=== PATIENT | male | born 2000 | race American Indian/Alaskan Native ===

== ENCOUNTER 2018-05-06 16:30 | Emergency (ER) | payer OTHER ==
[2018-05-06 16:41] VITALS: BP 111/79
[2018-05-06] MEDS ORDERED: NACL 0.9% 1000 ML 1,000 ML IV ONE (17:00)
--- NOTE | 2018-05-06 17:00 | Emergency Department Report ---
Blank Doc - Documentation Documentation: This is a 17 y.o. male that presents with nausea and vomiting after alcohol in toxication during college homecoming. This initial assessment diagnostic orders/clinical plan/treatment(s) is/are subject to change based on patient's health status, clinical progression and re-assessment by fellow clinical providers in the ED. Further treatment and workup at subsequent clinical providers discretion. Patient/guardians urged not to elope from ED s their condition may be serious if not clinically assessed and managed. Initial orders include: 1- Labs 2- IV 3- fluids Fast track for further evaluation.
[2018-05-06 17:21] LABS: Basophils % (Auto) 0.7 % (0.0-1.8); Eosinophils # (Auto) 0.1 K/mm3 (0.0-0.4); Eosinophils % (Auto) 3.2 % (0.0-4.3); Hematocrit 42.7 % (35.5-45.6); Lymphocytes # (Auto) 1.8 K/mm3 (1.2-5.4); Lymphocytes % (Auto) 39.2 % (13.4-35.0); Mean Corpuscular HGB Conc 35 % (32-34); Mean Corpuscular Volume 85 fl (84-94); Monocytes # (Auto) 0.3 K/mm3 (0.0-0.8); Monocytes % (Auto) 6.4 % (0.0-7.3); Platelet Count 234 K/mm3 (140-440); Red Blood Count 5.01 M/mm3 (3.65-5.03); Red Cell Distribution Width 13.8 % (13.2-15.2)
[2018-05-06 17:32] LABS: BUN/Creatinine Ratio 10; Blood Urea Nitrogen 11 mg/dL (9-20); Calcium 9.1 mg/dL (8.4-10.2); Hemolysis Index 29
[2018-05-06] MEDS ORDERED: ZOFRAN IV ONE (18:10)
[2018-05-06 19:34] LABS: Alanine Aminotransferase 23 units/L (7-56); Albumin 4.7 g/dL (3.9-5)
--- NOTE | 2018-05-06 19:40 | Emergency Department Report ---
Vomiting/Diarrhea - HPI Chief Complaint: Nausea/Vomiting/Diarrhea Stated Complaint: DEHYDRATION/WEAKNESS Time Seen by Provider: 05/06/18 16:58 Duration: Today Nausea/Vomiting Severity: Severe Diarrhea Severity: None Pain Location: Other (no pain) Pain Severity: None Symptoms: No Watery Diarrhea, No Bloody diarrhea, No Fever, No Able to Tolerate Fluids, No Recent Unusual Foods, No Recent Untreated Water, No Recent use of Antibiotics, No Family w/ Similar Symptoms, No Contacts w/ Similar Symptoms, No Rash, No Hematuria, No Recent URI Symptoms Other History: Patient here report that he was drinking and and about 3 PM he started having nausea and vomiting after drinking at College home, and and is now feeling weak. He denies any abdominal or back pain. Denies any urinary burning frequency or urgency. Denies any medical problem. Denies any headache. He states that he came keep any fluids down. Denies any fever or chills or neck pain or stiffness. Denies any chest pain or shortness of breath. ED Review of Systems ROS: Stated complaint: DEHYDRATION/WEAKNESS Other details as noted in HPI Constitutional: denies: chills, fever Eyes: denies: eye pain ENT: denies: throat pain, congestion Respiratory: denies: cough, shortness of breath, wheezing Cardiovascular: denies: chest pain, palpitations, dyspnea on exertion, edema, syncope Gastrointestinal: nausea, vomiting. denies: diarrhea, constipation, hematemesis, melena, hematochezia Genitourinary: denies: dysuria, hematuria Musculoskeletal: denies: back pain, joint swelling, arthralgia, myalgia Skin: denies: rash Neurological: denies: headache, numbness, paresthesias, confusion, abnormal gait, vertigo ED Past Medical Hx - Past Medical History Previous Medical History?: No - Surgical History Past Surgical History?: No - Family History Family history: no significant - Social History Smoking Status: Never Smoker Substance Use Type: Alcohol - Medications Home Medications: Home Medications Medication Instructions Recorded Confirmed Last Taken Type Ondansetron [Zofran ODT TAB] 8 mg PO Q8HR PRN #12 tab.rapdis 05/06/18 Unknown Rx Vomiting Diarrhea Exam - Exam General: Vital signs noted. No distress. Alert and acting appropriately. This is a 17-year-old male well-nourished well-developed in no acute distress. HEENT: Yes Moist Mucous Membranes (uvula midline and oral airways patent), No Pharyngeal Erythema, No Pharyngeal Exudates, No Rhinorrhea, No Conjuctival Injection, No Frontal Tenderness, No Maxillary Tenderness Neck: Yes Rigidity (supple, no C-spine tenderness), No Adenopathy Lungs: Yes Clear Lung Sounds, Yes Good Air Exchange, No Wheezes, No Stridor, No Cough, No Nasal Flaring, No Retractions, No Use of Accessory Muscles Heart exam: Regular: Yes, Murmur: No, Tachycardia: No Abdomen: Tenderness: No (nontender to palpate in all quadrants), Peritoneal Signs: No, Distention: No, Hyperactive Bowel sounds: No Skin exam: Rash: No, Edema: No, Normal turgor: Yes (procedure and had no rashes or lesions) Neurologic: Alert and oriented 3, no deficits. Musculoskeletal: Unremarkable. No cce. + 2 pulses in all extremities, no neurovascular compromise ED Course Vital Signs 05/06/18 05/06/18 16:39 16:43 Temperature 98 F Pulse Rate 78 78 Respiratory 18 18 Rate Blood Pressure 111/79 Blood Pressure 111/79 [Right] O2 Sat by Pulse 99 99 Oximetry - Reevaluation(s) Reevaluation #1: 05/06/18 20:02 Patient received 1 L of normal saline emergency room and Zofran 4 mg IV with relief of nausea and vomiting. He received 2 cups of water in emergency room and tolerated without any nausea or vomiting. He reports he is feeling a lot better ED Medical Decision Making - Lab Data Result diagrams: 05/06/18 16:57 05/06/18 16:57 Lab Results 05/06/18 05/06/18 05/06/18 Range/Units 16:57 16:57 16:57 WBC 4.6 (4.5-11.0) K/mm3 RBC 5.01 (3.65-5.03) M/mm3 Hgb 15.0 (11.8-15.2) gm/dl Hct 42.7 (35.5-45.6) % MCV 85 (84-94) fl MCH 30 (28-32) pg MCHC 35 H (32-34) % RDW 13.8 (13.2-15.2) % Plt Count 234 (140-440) K/mm3 Lymph % (Auto) 39.2 H (13.4-35.0) % Wharton % (Auto) 6.4 (0.0-7.3) % Eos % (Auto) 3.2 (0.0-4.3) % Baso % (Auto) 0.7 (0.0-1.8) % Lymph # 1.8 (1.2-5.4) K/mm3 Wharton # 0.3 (0.0-0.8) K/mm3 Eos # 0.1 (0.0-0.4) K/mm3 Baso # 0.0 (0.0-0.1) K/mm3 Seg Neutrophils % 50.5 (40.0-70.0) % Seg Neutrophils # 2.3 (1.8-7.7) K/mm3 Sodium 142 (137-145) mmol/L Potassium 3.9 (3.6-5.0) mmol/L Chloride 103.0 (98-107) mmol/L Carbon Dioxide 24 (22-30) mmol/L Anion Gap 19 mmol/L BUN 11 (9-20) mg/dL Creatinine 1.1 (0.8-1.5) mg/dL Estimated GFR > 60 ml/min BUN/Creatinine Ratio 10 % Glucose 110 H (75-100) mg/dL Calcium 9.1 (8.4-10.2) mg/dL Total Bilirubin (0.1-1.2) mg/dL Direct Bilirubin (0-0.2) mg/dL Indirect Bilirubin mg/dL AST (5-40) units/L ALT (7-56) units/L Alkaline Phosphatase (35-129) units/L Total Protein (6.3-8.2) g/dL Albumin (3.9-5) g/dL Albumin/Globulin Ratio % Lipase (13-60) units/L Plasma/Serum Alcohol 0.18 H (0-0.07) % 02/16/19 Range/Units 18:35 WBC (4.5-11.0) K/mm3 RBC (3.65-5.03) M/mm3 Hgb (11.8-15.2) gm/dl Hct (35.5-45.6) % MCV (84-94) fl MCH (28-32) pg MCHC (32-34) % RDW (13.2-15.2) % Plt Count (140-440) K/mm3 Lymph % (Auto) (13.4-35.0) % Wharton % (Auto) (0.0-7.3) % Eos % (Auto) (0.0-4.3) % Baso % (Auto) (0.0-1.8) % Lymph # (1.2-5.4) K/mm3 Wharton # (0.0-0.8) K/mm3 Eos # (0.0-0.4) K/mm3 Baso # (0.0-0.1) K/mm3 Seg Neutrophils % (40.0-70.0) % Seg Neutrophils # (1.8-7.7) K/mm3 Sodium (137-145) mmol/L Potassium (3.6-5.0) mmol/L Chloride (98-107) mmol/L Carbon Dioxide (22-30) mmol/L Anion Gap mmol/L BUN (9-20) mg/dL Creatinine (0.8-1.5) mg/dL Estimated GFR ml/min BUN/Creatinine Ratio % Glucose (75-100) mg/dL Calcium (8.4-10.2) mg/dL Total Bilirubin 1.20 (0.1-1.2) mg/dL Direct Bilirubin < 0.2 (0-0.2) mg/dL Indirect Bilirubin 1.0 mg/dL AST 25 (5-40) units/L ALT 23 (7-56) units/L Alkaline Phosphatase 134 H (35-129) units/L Total Protein 7.5 (6.3-8.2) g/dL Albumin 4.7 (3.9-5) g/dL Albumin/Globulin Ratio 1.7 % Lipase 32 (13-60) units/L Plasma/Serum Alcohol (0-0.07) % - Medical Decision Making This is a 17-year-old male brought to the emergency room by his friends who can see into much alcohol and now having nausea and vomited. Please refer to my notes a physical findings. A/P Nausea and vomiting secondary to alcohol intoxication-patient would 0.18 blood alcohol level ,CBC stable CMP stable except that alkaline phosphatase with mild elevation. Patient was given IV fluids 1 L and Zofran 4 mg emergency room. He was given 2 cups of ice water and he tolerated well and he reports he is feeling a lot better. I discussed with him that he needs to limit his alcohol intake as he cannot tolerate drinking alcohol and if he continues to do this can lead to liver disease and he voiced understanding. Patient discharged home with friends with prescription for Zofran and refrain from drinking alcohol and to follow-up with his primary care doctor in 3 days. He voiced understanding. Critical care attestation.: If time is entered above; I have spent that time in minutes in the direct care of this critically ill patient, excluding procedure time. ED Disposition Clinical Impression: Elevated alkaline phosphatase level Alcohol intoxication with blood level 0.08-0.29 Qualifiers: Complication of substance-induced condition: uncomplicated Qualified Code(s): F10.220 - Alcohol dependence with intoxication, uncomplicated Nausea and vomiting Qualifiers: Vomiting type: unspecified Vomiting Intractability: non-intractable Qualified Code(s): R11.2 - Nausea with vomiting, unspecified Disposition: DC-01 TO HOME OR SELFCARE Is pt being admited?: No Does the pt Need Aspirin: No Condition: Stable Instructions: Acute Nausea and Vomiting (ED), Abuse of Alcohol (ED) Additional Instructions: Please follow up with primary care doctor is recommended and 3 days. You will need to have repeat in your lab work. Take Zofran for nausea. Start off with bland diet to include banana, rice, applesauce and toast. Keep hydrated with water and Gatorade If symptoms return, return to the emergency room Stay away from alcohol Referrals: BIN LOBATO [Primary Care Provider] - 05/09/18 [facility] [Outside] - 05/09/18 Forms: Work/School Release Form(ED)
[2018-05-06 19:41] LABS: Bilirubin,Direct < 0.2 mg/dL (0-0.2)
== END 2018-05-06 20:21 | disposition home or self-care (01) ==
LOC: ED 16:30
DX: R74.8 Abnormal levels of other serum enzymes (principal); F10.220 Alcohol dependence with intoxication, uncomplicated; R11.2 Nausea with vomiting, unspecified
CPT/HCPCS: 36415; 80048; 80076; 83690; 85025; 96361; 96374; 99283; G0480; J2405; J7030; 80320